=== PATIENT | male | born 1975 | race Hispanic/Latino ===

== ENCOUNTER 2020-01-18 | Emergency (ER) | payer BC, OTHER ==
--- NOTE | 2020-01-18 16:04 | ED.PDOC ---
History of Present Illness - General Time Seen by Provider: 01/18/20 16:01 Additional Information: 44M with no significant past medical history presents with right leg pain. Pushing a car two days ago and felt a pop/pain in his right posterior calf. Complains of posterior pain/swelling with bruising. He is ambulatory with some pain. No weakness, numbness or tingling. No other complaints at this time. Review of Systems - Review of Systems Constitutional: States: no symptoms reported EENTM: States: no symptoms reported Respiratory: States: no symptoms reported Cardiology: States: no symptoms reported Gastrointestinal/Abdominal: States: no symptoms reported Genitourinary: States: no symptoms reported Musculoskeletal: States: muscle pain Skin: States: change in color Neurological: States: no symptoms reported Endocrine: States: no symptoms reported Hematologic/Lymphatic: States: no symptoms reported All other Systems: Reviewed and Negative Physical Exam - Physical Exam General Appearance: Comfortable, No apparent distress Respiratory: no respiratory distress Peripheral Pulses: dorsalis pedis,right: 2+ - <2 sec capillary refill Extremity: normal range of motion, normal capillary refill, calf tenderness, other - ecchymosis to posterior calf Neurologic: no motor/sensory deficits, alert, normal mood/affect, oriented x 3 Progress - Progress Progress: 01/18/20 16:04 Patient presents with right calf pain after pushing car, consistent with muscle strain/tear. He is ambulatory with full ROM of the leg. Boo's test is negative and no palpable tendon defects. Neurovascular exam is normal. Recommended conservative management with rest for three days, elevation/compression, tylenol/motrin for pain. He will follow up with PCP for outpatient MRI if remains symptomatic. Discussed importance of activity limitation due to possibility of re-injury. Departure - Departure Clinical Impression: Muscle tear Time of Disposition: 16:06 Disposition: Discharge to Home or Self Care Condition: Excellent Instructions: Muscle Strain (DC) Diet: resume usual diet Activity: increase activity as tolerated Referrals: Toño Carroll MD [Primary Care Provider] - 1-2 Weeks
== END 2020-01-18 16:25 | disposition home or self-care (01) ==